=== PATIENT | male | born 2000 | race Hispanic/Latino ===

== ENCOUNTER 2019-08-31 21:50 | Emergency (ER) | payer MEDICAID, OTHER ==
[2019-08-31 22:28] LABS: RAPID GROUP A STREP NEGATIVE (NEGATIVE)
== END 2019-08-31 22:57 | disposition home or self-care (01) ==
LOC: EDH 21:50
DX: B34.9 Viral infection, unspecified (principal)
CPT/HCPCS: 87804; 87880